=== PATIENT | male | born 1995 | race American Indian/Alaskan Native ===

== ENCOUNTER 2021-07-09 10:08 | Emergency (ER) | payer OTHER ==
[2021-07-09 10:27] VITALS: BP 122/82; PULSE 74; TEMP 97.9; BMI 25.0
[2021-07-09] MEDS ORDERED: DIPHTH,PERTUSS(ACELL),TET 0.5 ML DISP.SYRIN IM ONE ×2 (11:45)
== END 2021-07-09 12:01 | disposition home or self-care (01) ==
LOC: JERFT 10:08
PROC: 0HQKXZZ Repair Right Lower Leg Skin, External Approach (ICD-10-PCS; principal; 2021-07-09)
DX: S80.211A Abrasion, right knee, initial encounter (principal); S89.91XA Unspecified injury of right lower leg, initial encounter; S81.011A Laceration without foreign body, right knee, initial encounter
CPT/HCPCS: 12001; 99284-25